=== PATIENT | male | born 1990 | race Caucasian/White ===

== ENCOUNTER 2020-10-03 11:34 | Emergency (ER) | payer BC ==
[2020-10-03 11:37] VITALS: BP 130/75; PULSE 62
[2020-10-03 12:15] LABS: CHLORIDE,CL 105 mEq/L (98-106); SODIUM,NA 144 mEq/L (136-145)
[2020-10-03] MEDS: Ondansetron 4 MG/2 ML SDV IVPUSH STA (12:26)
[2020-10-03] MEDS: HYDROmorphone 1 MG/ML Syringe IVPUSH ONE (12:29)
--- NOTE | 2020-10-03 12:51 | EDM.PDOC ---
ED HPI GENERAL MEDICAL PROBLEM - General Chief Complaint: General Stated Complaint: "gallbladder pain" Time Seen by Provider: 10/03/20 11:42 Source of Information: Reports: Patient History Limitations: Reports: No Limitations - History of Present Illness INITIAL COMMENTS - FREE TEXT/NARRATIVE: This patient is a 30 year old male patient that presents to the ER. Patient reports having right upper abdominal pain for 1 week. Patient reports it has been getting worse. Patient reports seeing his PCP on and having an US of gallbladder done and prescribed 3 medications. Patient reports it has hurting worse after eating and drinking. Patient reports nausea. Denies v, d, f, chest pain, shortness of breath, back pain, difficulty urinating. Onset Date: 09/26/20 Duration: Getting Worse Location: Reports: Abdomen Severity: Moderate Improves with: Reports: None Worsens with: Reports: None Associated Symptoms: Reports: Nausea/Vomiting. Denies: Confusion, Chest Pain, Cough, cough w sputum, Diaphoresis, Fever/Chills, Headaches, Loss of Appetite, Malaise, Rash, Seizure, Shortness of Breath, Syncope, Weakness Right Abdominal Pain Score (Numeric/FACES): 6 - Related Data Allergies Allergy/AdvReac Type Severity Reaction Status Date / Time No Known Allergies Allergy Verified 10/03/20 11:37 Home Meds: Home Meds Ondansetron [Zofran ODT] 1 - 2 tab PO Q4H PRN 10/03/20 [History] Pantoprazole [ProTONIX] 40 mg PO DAILY PRN 10/03/20 [History] Sucralfate [Carafate] 1 gm PO TID PRN 10/03/20 [History] Venlafaxine [Effexor] 75 mg PO DAILY 10/03/20 [History] Past Medical History Genitourinary History: Reports: Renal Calculus Psychiatric History: Reports: Depression - Infectious Disease History Infectious Disease History: Reports: Novel Coronavirus - Past Surgical History HEENT Surgical History: Reports: Oral Surgery, Tonsillectomy Social & Family History - Family History Family Medical History: No Pertinent Family History - Tobacco Use Tobacco Use Status *Q: Current Some Day Tobacco User Years of Tobacco use: 2 Packs/Tins Daily: 0 - Caffeine Use Caffeine Use: Reports: Soda - Recreational Drug Use Recreational Drug Use: No ED ROS GENERAL - Review of Systems Review Of Systems: See Below Constitutional: Reports: No Symptoms HEENT: Reports: No Symptoms Respiratory: Reports: No Symptoms Endocrine: Reports: No Symptoms GI/Abdominal: Reports: Abdominal Pain, Nausea. Denies: Diarrhea, Vomiting : Reports: No Symptoms Musculoskeletal: Reports: No Symptoms Skin: Reports: No Symptoms Neurological: Reports: No Symptoms Psychiatric: Reports: No Symptoms Hematologic/Lymphatic: Reports: No Symptoms Immunologic: Reports: No Symptoms ED EXAM, GENERAL - Physical Exam Exam: See Below Exam Limited By: No Limitations General Appearance: Alert, WD/WN, No Apparent Distress Eye Exam: Bilateral Eye: Normal Inspection, PERRL Ears: Normal External Exam, Normal Canal, Hearing Grossly Normal, Normal TMs Ear Exam: Bilateral Ear: Auricle Normal, Canal Normal, TM normal Nose: Normal Inspection, Normal Mucosa, No Blood Throat/Mouth: Normal Inspection, Normal Lips, Normal Teeth, Normal Gums, Normal Oropharynx, Normal Voice, No Airway Compromise Head: Atraumatic, Normocephalic Neck: Normal Inspection, Supple, Non-Tender, Full Range of Motion Respiratory/Chest: No Respiratory Distress, Lungs Clear, Normal Breath Sounds, No Accessory Muscle Use Cardiovascular: Normal Peripheral Pulses, Regular Rate, Rhythm, No Edema, No Gallop, No JVD, No Murmur, No Rub Peripheral Pulses: 2+: Radial (L), Radial (R), Posterior Tibial (L), Posterior Tibial (R) GI/Abdominal: Normal Bowel Sounds, Soft, Tender (RUQ). No: Guarding, Rigid, Rebound (Male) Exam: Deferred Rectal (Males) Exam: Deferred Back Exam: Normal Inspection, Full Range of Motion. No: CVA Tenderness (L), CVA Tenderness (R) Extremities: Normal Inspection, Normal Range of Motion, Non-Tender, No Pedal Edema, Normal Capillary Refill Neurological: Alert, Oriented, Normal Cognition, Normal Gait, No Motor/Sensory Deficits Psychiatric: Normal Affect, Normal Mood Skin Exam: Warm, Dry, Intact, Normal Color, No Rash Lymphatic: No Adenopathy Course - Vital Signs Last Recorded V/S: Last Vital Signs Temp 97.7 F 10/03/20 11:34 Pulse 62 10/03/20 11:34 Resp 18 10/03/20 11:34 BP 130/75 10/03/20 11:34 Pulse Ox 97 10/03/20 11:34 - Orders/Labs/Meds Orders: Active Orders 24 hr Category Date Time Status Abdomen Pelvis w Cont [CT] Stat Exams 10/03/20 12:32 Taken Sodium Chloride 0.9% [Normal Saline] 500 ml Med 10/03/20 12:30 Active IV .BOLUS Medication Orders Sodium Chloride (Normal Saline) 500 mls @ 500 mls/hr IV .BOLUS RAMIRO Last Admin: 10/03/20 13:21 Dose: 500 mls/hr Documented by: СВЕТЛАНА Labs: Laboratory Tests 10/03/20 10/03/20 10/03/20 Range/Units 11:43 12:00 12:00 WBC 8.2 (4.0-11.0) 10^3/uL RBC 5.12 (4.50-6.00) x10^6/uL Hgb 15.7 (14.0-18.0) g/dL Hct 45.4 (42.0-52.0) % MCV 88.7 (83.0-97.0) fL MCH 30.7 (27.0-32.0) pg MCHC 34.6 (32.0-36.0) g/dL RDW Coeff of Meliza 12.2 (11.0-15.0) % Plt Count 240 (150-400) 10^3/uL Immature Gran % (Auto) 0.1 (0.0-4.9) % Neut % (Auto) 64.8 (41-71) % Lymph % (Auto) 22.8 L (24-44) % [place] % (Auto) 11.2 H (0-10) % Eos % (Auto) 0.6 (0-6) % Baso % (Auto) 0.5 (0-1) % Neut # (Auto) 5.29 (1.80-8.00) x10^3/uL Lymph # (Auto) 1.86 (0.60-5.00) 10^3/uL [place] # (Auto) 0.91 (0.00-1.50) 10^3/uL Eos # (Auto) 0.05 (0.00-1.50) 10^3/uL Baso # (Auto) 0.04 (0.00-0.50) 10^3/uL Immature Gran # (Auto) 0.01 (0.00-0.49) 10^3/uL Sodium 144 (136-145) mEq/L Potassium 4.1 (3.5-5.0) mEq/L Chloride 105 (98-106) mEq/L Carbon Dioxide 33 H (21-32) mmol/L BUN 12 (7-18) mg/dL Creatinine 1.3 (0.7-1.3) mg/dL Est Cr Clr Drug Dosing 91.20 mL/min Estimated GFR (MDRD) > 60 (>=60) mL/min Glucose 88 (75-99) mg/dL Calcium 8.8 (8.4-10.1) mg/dL Total Bilirubin 2.5 H (0.0-1.0) mg/dL AST 79 H (15-37) U/L ALT 106 H (12-78) U/L Alkaline Phosphatase 88 (46-116) U/L C-Reactive Protein 0.9 H (0.2-0.8) mg/dL Total Protein 7.1 (6.4-8.2) g/dL Albumin 3.8 (3.4-5.0) g/dL Amylase 33 (25-115) U/L Lipase 41 L (73-393) U/L Urine Color Dark yellow (YELLOW) Urine Appearance Clear (CLEAR) Urine pH 6.5 (4.5-8.0) Ur Specific [place] 1.025 H (1.003-1.020) Urine Protein Negative (NEGATIVE) mg/dL Urine Glucose (UA) Negative (NEGATIVE) mg/dL Urine Ketones Negative (NEGATIVE) mg/dL Urine Occult Blood Negative (NEGATIVE) Urine Nitrite Negative (NEGATIVE) Urine Bilirubin Moderate H (NEGATIVE) Urine Urobilinogen 1.0 (0.2-1.0) EU/dL Ur Leukocyte Esterase Negative (NEGATIVE) Meds: Medications Generic Name Dose Route Start Last Admin Trade Name Freq PRN Reason Stop Dose Admin Sodium Chloride 500 mls @ 500 mls/hr 10/03/20 12:30 10/03/20 13:21 Normal Saline IV 500 mls/hr .BOLUS RAMIRO Administration Discontinued Medications Generic Name Dose Route Start Last Admin Trade Name Freq PRN Reason Stop Dose Admin Hydrocodone Bitart/Acetaminophen 3 packet 10/03/20 15:09 Take Home: Acetaminophen/Hydrocodone 325-5 Mg, 2 Tab Pack PO 10/03/20 15:10 ONETIME ONE Hydromorphone HCl 0.5 mg 10/03/20 12:16 10/03/20 12:29 Hydromorphone 1 Mg/Ml Syringe IVPUSH 10/03/20 12:17 0.5 mg ONETIME ONE Administration Iopamidol 100 ml 10/03/20 13:40 10/03/20 13:45 Iopamidol 755 Mg/Ml 100 Ml Bottle IVPUSH 10/03/20 13:41 100 ml ONETIME ONE Administration Ondansetron HCl 4 mg 10/03/20 12:16 10/03/20 12:26 Ondansetron 4 Mg/2 Ml Sdv IVPUSH 10/03/20 12:17 4 mg NOW STA Administration Ondansetron HCl 2 packet 10/03/20 15:09 Take Home: Ondansetron 4 Mg Tab.Dis, 2 Tab Pack PO 10/03/20 15:10 ONETIME ONE - Radiology Interpretation Free Text/Narrative:: CT Abd/Pelvis: No acute findings. The appendix is normal. The gallbladder is distended and otherwise unremarkable. No gallstones identified. No gallbladder wall thieckening or pericholecystic fluid. CT Results Date: 10/03/20 CT Results Time: 14:40 - Re-Assessments/Exams Free Text/Narrative Re-Assessment/Exam: 10/03/20 14:44 Patient request was to call [facility]. I called and spoke to general surgeon plumbing engineering draftsperson Dr. Meir Rodriguez. He reports since the CT and US do not show gallstones or gallbladder abnormality, not surgical today. He reports if the patient starts running fever greater than 101 then to return for evaluation. He reports to have the patient get a HIDA with CCK scan. Reports may treat pain with opioids, avoiding Morphine and Codeine. Fat fee diet. 10/03/20 15:07 Patient does report the pain has improved some after medication in the ER. Departure - Departure Time of Disposition: 15:07 Disposition: Home, Self-Care 01 Condition: Fair Clinical Impression: Abdominal pain Qualifiers: Abdominal location: right upper quadrant Qualified Code(s): R10.11 - Right upper quadrant pain - Discharge Information *PRESCRIPTION DRUG MONITORING PROGRAM REVIEWED*: No *COPY OF PRESCRIPTION DRUG MONITORING REPORT IN PATIENT RICCARDO: No Instructions: Abdominal Pain, Adult, [id number], Gallbladder Eating Plan Referrals: PCP,None [Primary Care Provider] - Forms: ED Department Discharge Additional Instructions: Followup with your primary care provider to be scheduled for a HIDA Scan with CCK Return to the ER for worsening of condition or any emergent concerns [place] 5/325mg 1 pill every 6 hours as needed for pain #6 take home Zofran 4mg 1 pill under the tongue every 6 hours as needed for nausea or vomiting #4 take home No fatty foods Return to ER for fever, yellow skin or eyes, or other concerns Sepsis Event Note (ED) - Evaluation Sepsis Screening Result: No Definite Risk - Focused Exam Vital Signs: Vital Signs Temp Pulse Resp BP Pulse Ox 10/03/20 11:34 97.7 F 62 18 130/75 97 - My Orders Last 24 Hours: My Active Orders 10/03/20 12:30 Sodium Chloride 0.9% [Normal Saline] 500 ml IV .BOLUS 10/03/20 12:32 Abdomen Pelvis w Cont [CT] Stat - Assessment/Plan Last 24 Hours: My Active Orders 10/03/20 12:30 Sodium Chloride 0.9% [Normal Saline] 500 ml IV .BOLUS 10/03/20 12:32 Abdomen Pelvis w Cont [CT] Stat Plan: PLEASE SEE RN NOTE FOR PFSH
[2020-10-03] MEDS: Sodium Chloride 0.9% 500 ML IV SCH (13:21)
[2020-10-03] MEDS: Iopamidol 755 Mg/ML 100 ML Bottle IVPUSH ONE (13:45)
[2020-10-03] MEDS ORDERED: Take Home: Acetaminophen/HYDROcodone 325-5 MG, 2 Tab Pack ONE (14:50)
[2020-10-03] MEDS: Take Home: Acetaminophen/HYDROcodone 325-5 MG, 2 Tab Pack PO ONE (15:19)
[2020-10-03] MEDS: Take Home: Ondansetron 4 MG Tab.DIS, 2 Tab Pack PO ONE (15:19)
== END 2020-10-03 15:23 | disposition home or self-care (01) ==
LOC: CC.ED 11:34
DX: R10.11 Right upper quadrant pain (principal); Z79.899 Other long term (current) drug therapy; Z86.16 Personal history of COVID-19; Z72.0 Tobacco use; Z87.442 Personal history of urinary calculi
CPT/HCPCS: 36415; 74177; 80053; 81003; 82150; 83690; 85025; 86140; 96374; 96375; 99284; A9270; J1170; J2405; J7040; Q9967